=== PATIENT | female | born 1985 | race Hispanic/Latino ===

== ENCOUNTER 2019-10-11 19:29 | Inpatient (IN) | payer MEDICAID, OTHER, SELFPAY ==
[~2019-10-11 19:29] MED LIST: Bupivacaine 0.25% 10 ML VIAL ONE
[2019-10-11 20:05] VITALS: BMI 34.9
[2019-10-11] MEDS: Lactated Ringer's 1,000 ML IV SCH (20:15)
[2019-10-11] MEDS ORDERED: Acetaminophen 500 MG TAB PO PRN (20:18)
[2019-10-11] MEDS ORDERED: Butorphanol Tartrate 1 MG/ML VIAL SLOW IVP PRN (20:18)
[2019-10-11] MEDS ORDERED: NS / Oxytocin 40 units/1000ml 1,000 ML IV PRN (20:18)
[2019-10-11] MEDS ORDERED: Ibuprofen 800 MG TAB PO PRN (20:18)
[2019-10-11] MEDS ORDERED: Misoprostol 200 MCG TAB PR PRN (20:18)
[2019-10-11] MEDS ORDERED: Methylergonovine 0.2 MG/ML VIAL IM PRN (20:18)
[2019-10-11] MEDS ORDERED: Carboprost 250 MCG/ML AMP IM PRN (20:18)
[2019-10-11] MEDS ORDERED: hydrALAZINE 20 MG/ML VIAL SLOW IVP PRN (20:18)
[2019-10-11] MEDS ORDERED: Lidocaine 1% (PF) 30 ML VIAL SC PRN (20:18)
[2019-10-11] MEDS ORDERED: Promethazine HCl 25 MG/ML VIAL IM PRN (20:18)
[2019-10-11] MEDS ORDERED: Ondansetron PF 4 MG/2 ML Vial IVP PRN (20:18)
[2019-10-11] MEDS ORDERED: Diphenoxylate HCl/Atropine Tablet PO PRN ×2 (20:18)
--- NOTE | 2019-10-11 20:24 | PDOC.FPROB ---
FMR OB H&P: HPI - History of Present Illness Chief Complaint: IOL Indentification: 33 yo @ 37 wks by 7.4 wk sono History of Present Illness: 33 yo G1PO @ 37 wks by 7.4 wk sono with history of cholestasis of presents for induction of labor. She endorses good movement, no loss of fluid, contractions, or bleeding. She says she has some itching present on her belly where monitor is placed, but she has no itching of her sole or palms of feet. She had betamethasone shots on and Saturday of last week. Primary Care Physician: [facility]-Saadia Lopez, FMR OB H&P: Current - Care : 1 Para: 0 Gestational age: 37.0 Due date: 11/01/19 Dating Criteria: 7.4 wk sono Total weight gain: 20 lb gain - OB Labs Blood type: O RH: positive Antibody Screen: negative HIV: negative RPR: negative HepBsAg: negative Rubella: immune Quad screen: negative (Progenity negative) Gonorrhea: negative Chlamydia: negative Pap Smear: w/ cotestin w/n NILM 1 hour gtt: 142 3 hour GTT: Normal A1c: 5.2 GBS: positive H&H: Platelets: 476 Additional labs: TSH 3.530 Hep C 09/17/19 Non reactive 09/19/19 Total Bile acids 13, High TB done at HD and was negative - First Trimester Ultrasound First trimester: 03/19/2019- exam not cwd of LMP. 7.4 wk sono. CRL 1.30 cm. - Anatomy Survey Anatomy survey: 07/14/19- Could not fully get select views due to patient body habitus [id number] [place] 84%, EFW 787g - Additional Ultrasound Additional: 07/30/19- Face and Profile noted Unable to fully visulaize RVOT 26w4d 08/31/19-Grossly normal maternal antomy as visualized but limited by gestational age. 31w1d [place] 38.2%. 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 No previous paps. Paps performed during normal. No hx STDs - Surgical History Sx History: None - Social History Social History: Moved from [facility]. Pt denies smoking, drinking or illicit drug use during . Pt did take NSAIDs before she knew she was - Family History Family History: Noncontributory FMR OB H&P: Medications - Current Home Medications: Medication Instructions Recorded Confirmed Type Aspirin [Ecotrin Low Strength] 1 tab PO DAILY 10/11/19 10/11/19 History Pnv No.95/Ferrous Fum/Folic AC 1 tab PO DAILY 10/11/19 10/11/19 History [ Vitamins Tablet] Ursodiol 2 capsule PO Q12HR 10/11/19 10/11/19 History Allergies/Adverse Reactions: Allergies Allergy/AdvReac Type Severity Reaction Status Date / Time No Known Allergies Allergy Verified 10/11/19 20:06 FMR OB H&P: ROS - Review of Systems General: denies: fever/chills Eyes: denies: vision changes ENT: denies: nasal congestion, rhinorrhea, sore throat Cardiovascular: reports: edema (in feet and some in hands). denies: chest pain Respiratory: denies: cough, congestion, shortness of breath Gastrointestinal: reports: diarrhea (1 episode of diarrhea last night). denies : abdominal pain, nausea, vomiting, constipation Genitourinary (Female): denies: dysuria, vaginal discharge, vaginal pain, vaginal bleeding, contractions, vaginal pressure Musculoskeletal: denies: pain, tenderness, swelling Neurologic: denies: numbness, weakness, headache Integumentary: reports: itching (on abdomen). denies: rash Hematologic/Lymphatic: denies: enlarged lymph nodes FMR OB H&P: Vital Signs - Maternal Vital signs: Vital Signs - First Documented Temp Pulse Resp BP Pulse Ox 97.9 F 73 20 121/67 99 10/11/19 19:59 10/11/19 19:59 10/11/19 19:59 10/11/19 19:59 10/11/19 19:59 - Heart Tones Baseline: 130 Variability: moderate Acceleration: present Deceleration: absent Category: category 1 [place] contractions every: Every 4-8 minutes FMR OB H&P: Physical Exam - Physical Exam General: NAD, awake, alert and oriented HEENT: normocephalic and atraumatic, PERRLA, EOMI, conjunctiva clear, no scleral icterus, normal nasal mucosa, oropharynx clear Neck: trachea midline, no LAD Heart: RRR, normal S1/S2, no murmurs/rubs/gallops General: CTAB, no respiratory distress, good air movement, no rales/rhonchi, no wheezing Abdomen: soft, gravid, non-tender, bowel sound present Musculoskeletal: pulses present, FROM in all four extremities Neurological: cranial nerves II through XII intact Skin: no rash Lymphatic: no unusual bruising or bleeding, no purpura, no petechia, no LAD Psychiatric: normal mood and affect - Pelvic Exam Vulva: normal hair distribution, no lesions, no discharge, no blood SVE: 8:30 1/50-2 Sosa score: 5 Presentation: Vertex FMR OB H&P: A/P - Problem List (1) Cholestasis during Current Visit: Yes Status: Acute Code(s): O26.619 - LIVER AND BILIARY TRACT DISORD IN , UNSP TRIMESTER; K83.1 - OBSTRUCTION OF BILE DUCT (2) Term Current Visit: Yes Status: Acute Code(s): Z34.90 - ENCNTR FOR SUPRVSN OF NORMAL , UNSP, UNSP TRIMESTER Disposition: 33 yo G1PO @ 37 wks by 7.4 wk sono with history of cholestasis of presents for induction of labor. 1. Term Induction at 37 weeks for cholestasis * Betamethasone x2 * GBS +, prophylaxis with penicillin initiated * Sosa score of 5 will start Cytotec @ 2100 * Will monitor strip, currently cat 1 2. Cholestasis of Itching on abdomen, but none on hands and feet * Continue Current medication regimen with Ursodiol Discussion: Date/Time: 10/11/192021 This H&P was discussed with [] and [] who agree with the above documentation and plan.
[2019-10-11] MEDS ORDERED: Penicillin G Potassium 5 MILL.UNITS in Sodium Chloride 0.9% 100 ML IVPB SCH (20:30)
[2019-10-11] MEDS ORDERED: Misoprostol 100 MCG TAB VAG SCH ×2 (20:30)
[2019-10-11] MEDS ORDERED: Penicillin G 2.5 MILL.units 2.5 MILL.UNITS in Premix Bag 1 BAG IVPB SCH (20:30)
[2019-10-11 20:48] LABS: Hemoglobin 11.4 g/dL (12.0-16.0); Mean Corpuscular HGB CONC 33.6 g/dL (32.0-36.0); Mean Corpuscular Hemoglobin 29.1 pg (27.0-31.0); Mean Corpuscular Volume 86.8 fL (78.0-98.0); Mean Platelet Volume 9.5 fL (7.4-10.4); Platelet Count 281 thou/uL (130-400); RBC Distribution Width 13.9 % (11.5-14.5); Red Blood Cell (RBC) Count 3.91 mill/uL (4.20-5.40); White Blood Cell (WBC) Count 10.3 thou/uL (4.8-10.8)
[2019-10-11 21:33] LABS: Syphilis Antibody Nonreactive (Nonreactive); Syphilis Antibody Index 0.04 S/CO (<1.00 Non-Reactive)
[2019-10-11 21:55] LABS: ALT (SGPT) 36 U/L (8-55); AST (SGOT) 31 U/L (5-34); Albumin 3.5 g/dL (3.5-5.0); Alkaline Phosphatase 233 U/L (40-110); Anion Gap 14 mmol/L (10-20); BUN (Urea Nitrogen) 10 mg/dL (7.0-18.7); Bilirubin, Total 0.2 mg/dL (0.2-1.2); Calc. Creatinine Clearance 197 mL/min (70-130); Calcium 8.4 mg/dL (7.8-10.44); Carbon Dioxide 19 mmol/L (22-29); Chloride 108 mmol/L (98-107); Estimated GFR-MDRD Greater than 90; Globulin 2.9 g/dL (2.4-3.5); Glucose 82 mg/dL (70-105); Potassium 3.9 mmol/L (3.5-5.1); Protein, Total 6.4 g/dL (6.0-8.3); Sodium 137 mmol/L (136-145)
[2019-10-11 22:47] LABS: HBSAg Index 0.28 S/CO (0-0.99); Hep B Surf Ag Non-Reactive S/CO (NonReactive)
[2019-10-12] MEDS: Misoprostol 100 MCG TAB VAG SCH ×5 (00:30→21:08)
[2019-10-12] MEDS: Penicillin G 2.5 MILL.units 2.5 MILL.UNITS in Premix Bag 1 BAG IVPB SCH ×5 (01:15→21:08)
--- NOTE | 2019-10-12 02:00 | PDOC.LDPN ---
Labor & Delivery Progress Note - Subjective Subjective: comfortable - Objective Vital signs reviewed and normal: yes General: NAD, resting Uterine fundus: non tender SVE: 2/50/-2 Dilation: 2 Effacement: 50% Station: -2 FHT: category 1, variability present [place] contractions every: 1-2 minutes - Assessment (1) Cholestasis during Code(s): O26.619 - LIVER AND BILIARY TRACT DISORD IN , UNSP TRIMESTER; K83.1 - OBSTRUCTION OF BILE DUCT Current Visit: Yes Status: Acute (2) Term Code(s): Z34.90 - ENCNTR FOR SUPRVSN OF NORMAL , UNSP, UNSP TRIMESTER Current Visit: Yes Status: Acute Plan: continue plan of care -: 33 yo G1PO @ 37 wks by 7.4 wk sono with history of cholestasis of presents for induction of labor. 1. Term Induction at 37 weeks for cholestasis * Betamethasone x2 * GBS +, continue prophylaxis with penicillin * Sosa score of 5 still, Cytotec @ 2100 * Contractions every 1-2 minutes, will hold on placing another cytotec * Will place balloon if no progression of labor at next check * Will monitor strip, currently cat 1, baseline 140, moderate variability , accelerations present, no decels 2. Cholestasis of Itching on abdomen, but none on hands and feet * Continue Current medication regimen with Ursodiol
--- NOTE | 2019-10-12 04:29 | PDOC.LDPN ---
Labor & Delivery Progress Note - Subjective Subjective: comfortable - Objective Vital signs reviewed and normal: yes General: NAD Uterine fundus: non tender SVE: 4/75/-2 Dilation: 4 Effacement: 75% Station: -2 FHT: category 1, variability present [place] contractions every: 1-2 minutes AROM: bloody fluid - Assessment (1) Cholestasis during Code(s): O26.619 - LIVER AND BILIARY TRACT DISORD IN , UNSP TRIMESTER; K83.1 - OBSTRUCTION OF BILE DUCT Current Visit: Yes Status: Acute (2) Term Code(s): Z34.90 - ENCNTR FOR SUPRVSN OF NORMAL , UNSP, UNSP TRIMESTER Current Visit: Yes Status: Acute Plan: continue plan of care -: 33 yo G1PO @ 37 wks by 7.4 wk sono with history of cholestasis of presents for induction of labor. 1. Term Induction at 37 weeks for cholestasis * Betamethasone x2 * GBS +, continue prophylaxis with penicillin * Sosa score of 7, Cytotec @ 2100 * Contractions every 1-2 minutes * Will hold on cytotec * Will monitor strip, currently cat 1, baseline 140, moderate variability , accelerations present, no decels 2. Cholestasis of Itching on abdomen, but none on hands and feet * Continue Current medication regimen with Ursodiol
[2019-10-12] MEDS: Lactated Ringer's 1,000 ML IV SCH ×3 (05:19→21:09)
[2019-10-12] MEDS ORDERED: Fentanyl 4 mcg/Bup 0.1% Cadd 100 ML ONE ×2 (06:43→14:24)
--- NOTE | 2019-10-12 09:25 | PDOC.LDPN ---
Labor & Delivery Progress Note - Subjective Subjective: comfortable, no concerns - Objective Vital signs reviewed and normal: yes General: resting, breathing through contractions Uterine fundus: non tender SVE: /-1 @ 0900 Dilation: 7 Effacement: 90% Station: -1 FHT: category 1, variability present [place] contractions every: 2 min AROM: clear fluid (AROM with amniohook @ 0919) Plan: continue plan of care -: 33 yo G1PO @ 37.1 wks by 7.4 wk sono with history of cholestasis of presents for induction of labor. 1. Term Induction at 37 weeks for cholestasis -Betamethasone x2 last week -GBS +, continue prophylaxis with penicillin -Sosa score of 7, Cytotec @ 2100 -Contractions every 1-2 minutes -Will continue hold on cytotec -Will monitor strip, currently cat 1, baseline 140, moderate variability, accelerations present, no decels -AROM @ 0919 with clear fluid seen, recheck still /-1 2. Cholestasis of -Itching on abdomen, but none on hands and feet -Continue Current medication regimen with Ursodiol Dispo: Continue to monitor with next check in 2 hours. Addendum - Attending - Attending Attestation Date/Time: 10/12/19 [id number] I personally evaluated the patient and discussed the management with Dr. Lyons and Elmo I agree with the History, Examination, Assessment and Plan documented above with any addition or exceptions noted below. Now AROM. Clear fluid. tracing cat 1. Continue routine monitoring. Repeat exam in 2 hours or prn. Continue GBS ppx. Jaime
[2019-10-12] MEDS ORDERED: diphenhydrAMINE 50 MG/ML VIAL IVP PRN (09:35)
[2019-10-12] MEDS ORDERED: ePHEDrine/0.9% NaCl/PF SYRINGE 50 mg/10 ml SLOW IVP PRN (09:35)
[2019-10-12] MEDS ORDERED: Promethazine HCl 25 MG/ML VIAL IM PRN (09:35)
[2019-10-12] MEDS ORDERED: Acetaminophen 325 MG TAB PO PRN (09:35)
[2019-10-12] MEDS ORDERED: Naloxone HCl 0.4 mg/ml Vial IVP PRN ×2 (09:35)
[2019-10-12] MEDS ORDERED: Lactated Ringer's 500 ML IV PRN (09:35)
[2019-10-12] MEDS ORDERED: Ondansetron PF 4 MG/2 ML Vial IVP PRN (09:35)
[2019-10-12] MEDS ORDERED: Fentanyl 4 mcg/Bupivacaine 0.1% Cassette 100 ML EPIDURAL SCH (09:45)
[2019-10-12] MEDS ORDERED: Communication Order-Pharmacy FS SCH (09:45)
[2019-10-12 12:46] LABS: Hemoglobin 11.3 g/dL (12.0-16.0); Mean Corpuscular HGB CONC 33.4 g/dL (32.0-36.0); Mean Corpuscular Hemoglobin 29.3 pg (27.0-31.0); Mean Corpuscular Volume 87.5 fL (78.0-98.0); Mean Platelet Volume 8.9 fL (7.4-10.4); Platelet Count 264 thou/uL (130-400); RBC Distribution Width 13.9 % (11.5-14.5); Red Blood Cell (RBC) Count 3.87 mill/uL (4.20-5.40); White Blood Cell (WBC) Count 15.6 thou/uL (4.8-10.8)
[2019-10-12] MEDS ORDERED: Lidocaine 1% (PF) 30 ML VIAL ONE (12:57)
[2019-10-12] MEDS ORDERED: NS / Oxytocin 40 units/1000ml 1,000 ML ONE (12:57)
[2019-10-12 13:13] LABS: ALT (SGPT) 32 U/L (8-55); AST (SGOT) 28 U/L (5-34); Albumin 3.1 g/dL (3.5-5.0); Alkaline Phosphatase 224 U/L (40-110); Anion Gap 11 mmol/L (10-20); BUN (Urea Nitrogen) 9 mg/dL (7.0-18.7); Bilirubin, Total 0.4 mg/dL (0.2-1.2); Calc. Creatinine Clearance 207 mL/min (70-130); Calcium 8.4 mg/dL (7.8-10.44); Carbon Dioxide 21 mmol/L (22-29); Chloride 108 mmol/L (98-107); Estimated GFR-MDRD Greater than 90; Globulin 3.1 g/dL (2.4-3.5); Glucose 71 mg/dL (70-105); Potassium 3.8 mmol/L (3.5-5.1); Protein, Total 6.2 g/dL (6.0-8.3); Sodium 136 mmol/L (136-145)
[2019-10-12] MEDS ORDERED: Methylergonovine 0.2 MG/ML VIAL ONE (14:59)
[2019-10-12] MEDS ORDERED: Misoprostol 200 MCG TAB ONE (14:59)
[2019-10-12] MEDS ORDERED: Azithromycin 500 MG VIAL ONE (15:02)
[2019-10-12] MEDS ORDERED: Ampicillin 2 GM in Sodium Chloride 0.9% 100 ML IVPB SCH (16:30)
--- NOTE | 2019-10-12 18:12 | PDOC.LDPN ---
Labor & Delivery Progress Note - Subjective Subjective: comfortable, vaginal pressure, no concerns - Objective Abnormal vital signs: BP 142/70, then 130/78 General: NAD, resting, breathing through contractions Uterine fundus: non tender SVE: 8/100/0 @ 1100 & 1215 Dilation: 8 Effacement: 100% Station: 0 FHT: category 1, variability present [place] contractions every: 2-3 min AROM: clear fluid FSE placed: yes (placed @ 1215) Plan: continue plan of care -: 33 yo G1PO @ 37.1 wks by 7.4 wk sono with history of cholestasis of presents for induction of labor. 1. Term Induction at 37 weeks for cholestasis -Betamethasone x2 last week -GBS +, continue prophylaxis with penicillin -Sosa score of 7, Cytotec @ 2100 -Contractions every 2-3 minutes -Will continue hold on cytotec -Will monitor strip, currently cat 1, baseline 140, moderate variability, accelerations present, no decels -AROM @ 0919 with clear fluid seen -check @ 1215 is 8/100/0 with scalp electrode placed at that time 2. Cholestasis of -Itching on abdomen, but none on hands and feet -Continue Current medication regimen with Ursodiol Dispo: Continue to monitor with next check in 1-2 hours. Addendum - Attending - Attending Attestation Date/Time: 10/12/19 2796 I personally evaluated the patient and discussed the management with Dr. Lyons I agree with the History, Examination, Assessment and Plan documented above with any addition or exceptions noted below. Continue current course. Continues to make appropriate progress. Repeat exam in 2 hours of prn. Jaime
--- NOTE | 2019-10-12 18:19 | PDOC.OPDEL ---
OB Operative/Delivery Note Delivery Dr/Surgeon: John Lyons Bray Pre-Delivery Diagnosis: elective induction Procedure/Post Delivery Dx: spontaneous vaginal delivery Anesthesia: epidural - Additional Findings/Plan Placenta delivered: spontaneous Repaired Obstetrical Laceration: 2nd degree (bilateral periuretral lacs with hemostasis, right posterior sulcus lac repaired, 2nd degree vaginal repaired, left labial side wall lac with hemostasis) Estimated blood loss: 803 mL Compilations/Other Findings: Delivering Physician: John Lyons Attending: Tian Procedure: Spontaneous Vaginal Delivery Anesthesia: epidural, local Lidocaine for Repair QBL: 803 ml Pre-op Diagnosis: 1. Term intrauterine in labor 2. GBS positive, treated with Pen G x 4 doses 3. Cholestasis of Post-op Diagnosis: 1. Term intrauterine , delivered 2. same as above Indications: A 33 y/o female presents to L&D for induction due to cholestasis of . Delivery Note: This is 33 yo F now P1 @ 37.1 wks who delivered a viable F infant at 1451. Following an uneventful antepartum course, a vigorous female was delivered over an intact perineum in the ORLIN position. Anterior Shoulder and then remainder of the body delivered. No nuchal cord. The head was held down and mouth and nares were bulb suctioned. Cord clamped after delayed cord clamping and cut and cord blood collected. Placenta delivered intact Richey presentation with a 3 vessel cord noted. Initially there was uterine atony with a boggy posterior uterine segment. Fundal massage was performed, pitocin was given, then Methergine was given, massage was continued and the fundus became firm. The cervix and vagina were inspected and found have Lacerations in the right posterior sulcus and second degree perineal lacerations which were repaired with 2-0 Vicryl suture in the usual fashion with good approximation and hemostasis after a local anesthetic Lidocaine was injected at site. There were additional bilateral periurethral lacerations & left labial side wall lacerations that were noted to be hemostatic and did not require repair. Of note, at delivery of placenta the placenta was palpably very hot. There was an old suspected placental abruption noted in one of the placenta lobes. Additionally during fundal massage the vagina and uterus were noted to feel very hot. There was some initial concern for chorioamnioitis and it was decided to give one time dosing of 2g Ampicillin and 450 mg Gentamicin (5 mg/kg dosing). The patient's temperature was taken and was 97.8F. went to nursery in good condition for routine care. Apgars were 8 /9 at 1 & 5 minutes, respectively. Patient tolerated delivery well and went to after routine recovery/care. Attending NOTE: I was present and participated in the above documented procedure. Agree with documentation. Continue to monitor in pp period. Repeat antibx if has fever or uterine tenderness. Infant doing well but will continue to monitor over 48 hours in hospital. Significant vaginal lacerations with repair. Noted to have more blood loss than normal. Also noted to have uterine atony with improved with massage and methergine. Placenta sent to [facility]. Jaime Post delivery plan: routine recovery
[2019-10-13] MEDS: Penicillin G 2.5 MILL.units 2.5 MILL.UNITS in Premix Bag 1 BAG IVPB SCH ×2 (02:04→04:59)
[2019-10-13] MEDS: Misoprostol 100 MCG TAB VAG SCH ×5 (02:04→21:26)
[2019-10-13] MEDS ORDERED: Benzocaine-Menthol 82.5 ML CAN TOP PRN (02:49)
[2019-10-13] MEDS: Ibuprofen 800 MG TAB PO SCH ×3 (03:00→21:27)
[2019-10-13] MEDS: Lactated Ringer's 1,000 ML IV SCH ×3 (04:59→21:26)
--- NOTE | 2019-10-13 07:43 | PDOC.PP ---
Post Progress Note Post Day #: 1 Subjective: Pain is well controlled with medications and ice pack. Reports vaginal swelling. Lochia has slowed down. Tolerating PO and ambulating. Breast and bottle feeding. PO intake tolerated: yes Flatus: yes Ambulation: yes Vital Signs (12 hours) Temp Pulse Resp BP Pulse Ox 10/13/19 03:05 98.5 F 70 18 115/58 L 10/13/19 00:00 98.7 F 65 18 108/56 L 10/12/19 20:15 98.9 F 74 20 98/51 L 97 Weight Weight 91.626 kg - Physical Examination General: NAD Cardiovascular: no m/r/g, RRR Respiratory: non-labored breathing Abdominal: appropriately TTP Fundus firm & at: below umbilicus Neurological: no gross focal deficits Psychiatric: A&Ox3, normal affect Result Diagrams: 10/12/19 12:29 10/12/19 12:29 Additional Labs: Post Labs Blood Type O POSITIVE 10/11/19 21:35 Hep Bs Antigen Non-Reactive S/CO (NonReactive) 10/11/19 20:31 - Assessment/Plan 33yo delivered TAGA female on 10/12/2019 @37.1wks by 7.4 wk US IOL for cholestasis - Betamethasone x2 - GBS +, received adequate ppx - Concern for chorio, pt received one dose of Amp & Gent, Placenta sent for path - Meeting PP milestones - Continue routine care GBS positive - Received adequate ppx Addendum - Attending - Attending Attestation Date/Time: 10/13/19 1133 I personally evaluated the patient and discussed the management with Dr. Lopez I agree with the History, Examination, Assessment and Plan documented above with any addition or exceptions noted below. PPD#1 Patient doing well this AM. No acute changes overnight. Reports lochia appropriate. Pain controlled. No issues with infection in pp period. Nontender fundus. Firm and below umbilicus. Minimal edema to vagina. Well healing. No dehiscence. Minimal pain on exam. Continue routine pp care. No fevers. No concerns at this time for pp infection. Will continue to monitor over 48 hours. Jaime
[2019-10-13] MEDS: Polyethylene Glycol 3350 17 GM Packet PO SCH (09:41)
[2019-10-14] MEDS: Misoprostol 100 MCG TAB VAG SCH ×3 (05:11→09:37)
[2019-10-14] MEDS: Lactated Ringer's 1,000 ML IV SCH (05:12)
[2019-10-14] MEDS: Ibuprofen 800 MG TAB PO SCH (05:16)
--- NOTE | 2019-10-14 07:20 | PDOC.PP ---
Post Progress Note Post Day #: 2 Subjective: is going well, reports good latch. Pain well controlled with medication. Interested in exterminator termite contraception such as IUD or Nexplanon. Denies fevers, chills. PO intake tolerated: yes Flatus: yes Ambulation: yes Vital Signs (12 hours) Temp Pulse Resp BP Pulse Ox 10/13/19 20:09 98.3 F 77 16 106/56 L 96 Weight Weight 91.626 kg - Physical Examination General: NAD Cardiovascular: no m/r/g, RRR Respiratory: clear to auscultation bilaterally, non-labored breathing Abdominal: appropriately TTP Neurological: no gross focal deficits Psychiatric: A&Ox3, normal affect Result Diagrams: 10/12/19 12:29 10/12/19 12:29 Additional Labs: Post Labs Blood Type O POSITIVE 10/11/19 21:35 Hep Bs Antigen Non-Reactive S/CO (NonReactive) 10/11/19 20:31 - Assessment/Plan 33yo delivered TAGA female on 10/12/2019 @37.1wks by 7.4 wk US IOL for cholestasis, delivered - PPD #2 - Betamethasone x2 - Concern for chorio, pt received one dose of Amp & Gent, Placenta sent for path - Meeting PP milestones - Continue routine care - Likely dc home today. GBS positive - Received adequate ppx Addendum - Attending - Attending Attestation Date/Time: 10/14/19 0933 I personally evaluated the patient and discussed the management with Dr. Lopez I agree with the History, Examination, Assessment and Plan documented above with any addition or exceptions noted below. PPD#2 Patient doing well. No complaints. Follow up with [facility] in 2 wks Ok to dc to home ABrayMD
[2019-10-14 08:42] VITALS: BP 115/67; TEMP 97.9
[2019-10-14] MEDS: Polyethylene Glycol 3350 17 GM Packet PO SCH (09:41)
== END 2019-10-14 15:00 | disposition home or self-care (01) | DRG 805 ==
LOC: L&D 19:29 → 3SW 10-12 20:20
PROVIDERS: ADMIT Family Medicine; ATTEND Family Medicine
PROC: 10E0XZZ Delivery of Products of Conception, External Approach (ICD-10-PCS; principal; 2019-10-11)
PROC: 0KQM0ZZ Repair Perineum Muscle, Open Approach (ICD-10-PCS; 2019-10-11)
PROC: 10907ZC Drainage of Amniotic Fluid, Therapeutic from Products of Conception, Via Natural or Artificial Opening (ICD-10-PCS; 2019-10-11)
DX: O26.62 Liver and biliary tract disorders in childbirth (principal); K83.1 Obstruction of bile duct; Z37.0 Single live birth; O99.824 Streptococcus B carrier state complicating childbirth; O70.1 Second degree perineal laceration during delivery; O62.2 Other uterine inertia; Z3A.37 37 weeks gestation of pregnancy
CPT/HCPCS: 36415; 80053; 85027; 86780; 86850; 86900; 86901; 87340; 88307; J0290; J0456; J0595; J1580; J2001; J2210; J2405; J2540; J3490; S0020